=== PATIENT | female | born 1925 | race Caucasian/White ===

== ENCOUNTER 2017-02-03 14:13 | Outpatient (CLI) | payer SELFPAY | END 2017-02-03 14:14 | disposition EMS.NT | LOC: EMS 14:13 | PROVIDERS: ATTEND Surgery | DX: Z03.89 Encounter for observation for other suspected diseases and conditions ruled out (principal); W18.39XA Other fall on same level, initial encounter; Y92.008 Other place in unspecified non-institutional (private) residence as the place of occurrence of the external cause ==